=== PATIENT | male | born 1980 | race Caucasian/White ===

== ENCOUNTER 2018-11-11 16:51 | Inpatient (IN) | payer MEDICAID ==
[~2018-11-11] VITALS: Ht 160 cm; Wt 96.6 kg
[2018-11-11] VITALS (12 sets, daily range): BP systolic 92–143; BP diastolic 53–74
--- NOTE | 2018-11-11 16:54 | NUR ---
JACINTA 89 [facility]: OD ON OXYCONTIN USING SNORTING METHOD, 2 NARCAN GIVEN IN FIELD WITH SOME RESPONSE, TO ER BED 8,PT NOTED W ALTERED MENTAL STATUS, ABLE TO ANSWER HIS NAME WHEN ASKED, DIFFICULTY OF BREATHING. MD AT BEDSIDE, RT AT BEDSIDE.
--- NOTE | 2018-11-11 16:55 | NUR ---
PT A&O x1, LABORED SHALLOW BREATHING WITH RETRACTIONS NOTED, TACHYPNEIC, IN RESPIRATORY DISTRESS
--- NOTE | 2018-11-11 16:56 | NUR ---
INTUBATION DONE BY DR COLVIN
[2018-11-11] MEDS ORDERED: PROPOFOL 100 ML ONE (17:01)
[2018-11-11] MEDS ORDERED: LORAZEPAM INJ 2 MG/ML VIAL ONE (17:01)
[2018-11-11] MEDS: PROPOFOL 100 ML IV ONE ×2 (17:10→17:22)
--- NOTE | 2018-11-11 17:10 | NUR ---
PT ON MONITOR, NOTED W PINPOINT PUPILS, BILATERAL COARSE WET RONCHI AT BOTH LUNG PIRES. RT AT BEDSIDE
--- NOTE | 2018-11-11 17:27 | NUR ---
RT NOTE PT INTUBATED PER MD ORDER. 7.5 ETT 26 CM AT LIP. CUFF INFLATED. ETT SECURE. SETTINGS FOLLOW AC 16 550 100% +5. ALARMS SET PER PROTOCOL AND AUDIBLE. VENT PLUGGED IN TO RED OUTLET. AMBU BAG AT BED SIDE. BLOOD COLORED FROTHY SECRETIONS SUCTIONED FROM TRACHEA. Addendum: 11/11/18 at 1729 by BAUTISTA ALVARADO RT Amended: Links added.
[2018-11-11] MEDS ORDERED: IV NS 0.9% 1,000 ML BAG IV ONE (17:30)
[2018-11-11] MEDS ORDERED: ETOMIDATE 2 MG/ML VIAL IV ONE ×2 (17:30→18:56)
[2018-11-11] MEDS ORDERED: SUCCINYLCHOLINE CHLORIDE 20 MG/ML VIAL IV ONE ×2 (17:30→18:56)
[2018-11-11] MEDS ORDERED: NALOXONE HCL 0.4 MG/ML AMPUL IV ONE (17:30)
[2018-11-11] MEDS ORDERED: FUROSEMIDE 20 MG/2 ML VIAL IV ONE (17:30)
[2018-11-11 17:43] LABS: BASOPHILS # (AUTO) 0.1 /CMM (0.0-0.2); BASOPHILS % (AUTO) 0.4 % (0.0-2.0); EOSINOPHILS % (AUTO) 1.5 % (0.0-6.0); HEMATOCRIT 37 % (39-51); HEMOGLOBIN 10.6 g/dL (13.5-17.5); LYMPHOCYTES # (AUTO) 6.3 /CMM (0.8-4.8); MEAN CORPUSCULAR HGB CONC 28 g/dl (31.0-36.0); MEAN CORPUSCULAR VOLUME 64 fL (80-96); MONOCYTES # (AUTO) 0.6 /CMM (0.1-1.30); MONOCYTES % (AUTO) 3.4 % (2.0-12.0); NEUTROPHILS # (AUTO) 10.8 /CMM (1.8-8.9); NEUTROPHILS % (AUTO) 59.7 % (43.0-81.0); PLATELET COUNT (AUTO) 302 /CMM (150-450); RED BLOOD CELL COUNT(AUTO) 5.84 MIL/uL (4.5-6.0); WHITE BLOOD COUNT (AUTO) 18.1 K/uL (4.3-11.0)
[2018-11-11 17:44] LABS: ALANINE AMINOTRANSFERASE 88 U/L (12-78); ALBUMIN 3.4 g/dL (3.4-5.0); ALKALINE PHOSPHATASE 157 U/L (46-116); ASPARTATE AMINOTRANSFERASE 127 U/L (15-37); BILIRUBIN,DIRECT 0.1 mg/dL (0.0-0.2); BILIRUBIN,TOTAL 0.4 mg/dL (0.2-1.0); CALCIUM, SERUM 7.6 mg/dL (8.5-10.1); CARBON DIOXIDE 19 mmol/L (21-32); CHLORIDE 102 mmol/L (98-107); CREATININE 1.3 mg/dL (0.6-1.3); POTASSIUM 4.2 mmol/L (3.5-5.1); SODIUM SERUM 135 mmol/L (136-145); TOTAL PROTEIN, SERUM 7.5 g/dL (6.4-8.2); UREA NITROGEN, BLOOD 14 mg/dL (7-18)
[2018-11-11 17:45] LABS: GLUCOSE 356 mg/dL (74-106)
[2018-11-11] MEDS ORDERED: INSULIN REGULAR, HUMAN 100 UNIT/ML 10 ML VIAL IV ONE (18:00)
--- NOTE | 2018-11-11 18:04 | NUR ---
CALLED FOR ICU BED
--- NOTE | 2018-11-11 18:06 | NUR ---
GOT BED 257
[2018-11-11] MEDS ORDERED: INSULIN REGULAR, HUMAN 100 UNIT/ML 10 ML VIAL ONE (18:07)
--- NOTE | 2018-11-11 18:10 | NUR ---
4 UNITS OF HUMULIN R GIVEN ORDERED, BS CHECKED AT 141MG/DL MD MADE AWARE
[2018-11-11 18:11] LABS: ABG BASE EXCESS -7.6 mmol/L; ABG OXYGEN SATURATION 92.9 % (92.0-98.5); ABG PCO2 59.9 mmHg (35.0-45.0); ABG PH 7.171 (7.350-7.450); AaDO2 569.1 mmHg; COHb 0.8 % (0.5-1.5); MetHb 0.5 % (0.0-1.5); O2Hb 91.7 % (94.0-97.0); PEEP,BG 5 cm H2O; SITE, ABG Right Radial; VENT MODE, BG AC 16 550 100% +5; VT, ABG 550 mL
--- NOTE | 2018-11-11 18:34 | NUR ---
REPORT GIVEN TO CLAUDIO HERMOSILLO
[2018-11-11] MEDS ORDERED: ONDANSETRON HCL/PF 4 MG/2 ML VIAL IVP PRN (19:00)
[2018-11-11] MEDS ORDERED: ACETAMINOPHEN 325 MG TABLET PO PRN (19:00)
[2018-11-11] MEDS ORDERED: PIPERACILLIN /TAZOBACTAM 3.375 G in IV D5W 50 ML IV ONE (19:00)
[2018-11-11] MEDS ORDERED: MAGNESIUM HYDROXIDE 30 ML UDC PO PRN (19:00)
[2018-11-11] MEDS ORDERED: PROPOFOL 100 ML IV PRN (19:00)
[2018-11-11] MEDS ORDERED: MAG HYDROX/AL HYDROX/SIMETH 30 ML UDC PO PRN (19:00)
--- NOTE | 2018-11-11 19:02 | NUR ---
INFORMATION RESOURCES MANAGER: RECEIVED PT ON S/P ORAL INTUBATION SECONDARY WT ADMISSION DX OF ACUTE HYPOXIC RESPIRATORY FAILURE. VENT SETTINGS ORDERED WT O2 SAT 96% AND ABOVE. SEDATED ON DIPRIVAN DRIP AT 60MCG/KG/MIN AND WITHDRAWS TO PAIN STIMULI. IV SITES INTACT WT NO S/S OF INFILTRATION. BILAT. SOFT WRIST RESTRAINTS IN PLACE FOR EPISODES OF TRYING TO REMOVE TUBINGS. SR-ST ON CARDICA MONITOR. AFEBRILE. F/C INTACT DRAINING LARGE AMT. OF CLEAR YELLOW URINE. HOB AT 35 DEGREES. SAFETY PRECAUTION NOTED. WILL CONTINUE TO MONITOR.
[2018-11-11] MEDS ORDERED: DEXTROSE 50%-WATER 50 ML DISP.SYRIN IVP ONE (19:30)
[2018-11-11] MEDS: IV NS 0.9% 1,000 ML IV PRN (19:41)
[2018-11-11] MEDS: ENOXAPARIN SODIUM 40 MG/0.4 ML DISP.SYRIN SQ SCH (19:55)
[2018-11-11] MEDS: PROPOFOL 100 ML IV PRN ×3 (20:01→23:57)
[2018-11-11] MEDS: BLOOD SUGAR DIAGNOSTIC 1 EACH STRIP IN SCH (23:32)
[2018-11-12] VITALS (37 sets, daily range): BP systolic 95–130; BP diastolic 55–81
[2018-11-12] MEDS ORDERED: PIPERACILLIN /TAZOBACTAM 3.375 G in IV D5W 50 ML IV SCH ×2
[2018-11-12] MEDS: PIPERACILLIN /TAZOBACTAM 3.375 G in IV D5W 100 ML IV SCH ×4 (00:30→23:43)
[2018-11-12] MEDS: PROPOFOL 100 ML IV PRN ×14 (01:45→23:11)
[2018-11-12 04:35] LABS: BASOPHILS % (AUTO) 0.3 % (0.0-2.0); EOSINOPHILS % (AUTO) 0.3 % (0.0-6.0); HEMATOCRIT 35 % (39-51); HEMOGLOBIN 10.7 g/dL (13.5-17.5); LYMPHOCYTES # (AUTO) 1.2 /CMM (0.8-4.8); LYMPHOCYTES % (AUTO) 12.3 % (20.0-44.0); MEAN CORPUSCULAR HGB CONC 31 g/dl (31.0-36.0); MEAN CORPUSCULAR VOLUME 61 fL (80-96); MONOCYTES # (AUTO) 0.7 /CMM (0.1-1.30); MONOCYTES % (AUTO) 6.8 % (2.0-12.0); NEUTROPHILS # (AUTO) 7.8 /CMM (1.8-8.9); NEUTROPHILS % (AUTO) 80.3 % (43.0-81.0); PLATELET COUNT (AUTO) 195 /CMM (150-450); RED BLOOD CELL COUNT(AUTO) 5.65 MIL/uL (4.5-6.0); WHITE BLOOD COUNT (AUTO) 9.8 K/uL (4.3-11.0)
[2018-11-12 04:38] LABS: CALCIUM, SERUM 8.1 mg/dL (8.5-10.1); MAGNESIUM 1.9 mg/dL (1.8-2.4); PHOSPHORUS 4.2 mg/dL (2.5-4.9); POTASSIUM 3.4 mmol/L (3.5-5.1)
[2018-11-12 04:57] LABS: BAND % (MANUAL) 4 % (0.0-5.0); LYMPHOCYTES % (MANUAL) 13 % (16-48); MONOCYTES % (MANUAL) 4 % (0-11.0); NEUTROPHILS % (MANUAL) 79 (42-76)
[2018-11-12] MEDS: BLOOD SUGAR DIAGNOSTIC 1 EACH STRIP IN SCH ×4 (05:47→23:49)
--- NOTE | 2018-11-12 06:50 | NUR ---
HEALTH AND SAFETY ADVISOR: STILL SEDATED ON DIPRIVAN AT 100 MCG/KG/MIN. FI02 DECREASED TO 60% SINCE 0400 WT NO ACUTE DISTRESS. NO SIGNIFICANT KENJI DURING THE SHIFT. WILL ENDORSE TO DAY SHIFT FOR CONTINUITY OF CARE. SAFETY PRECAUTION NOTED AT ALL TIMES.
--- NOTE | 2018-11-12 07:10 | NUR ---
RN NOTES RECEIVED PT ON BED, INTUBATED, SEDATED, TOLERATING CURRENT VENT SETTING WELL, O2 SAT 98%,ON TELE SR HR IN 90'S , ON DIPRIVAN DRIP AT 100MCG/KG/MIN , R AND L AC IV SITE G 18 CLEAN ,DRY AND INTACT, ABDNO. SOFT WRIST RESTRAINTS IN PLACE FOR EPISODES OF TRYING TO REMOVE TUBINGS AND SAFETY PRECAUTIONS, F/C INTACT DRAINING LARGE AMT. OF CLEAR YELLOW URINE. HOB ELEVATED, ,SR UP x3, CALL LIGHT WITHIN EASY REACH, BED LOCKED AND IN LOWEST POSITION, CONTINUE TO MONITOR.
[2018-11-12] MEDS: PANTOPRAZOLE 40 MG VIAL IV SCH (08:08)
[2018-11-12] MEDS: IV NS 0.9% 1,000 ML IV PRN ×3 (08:33→23:26)
[2018-11-12 09:03] LABS: ABG BASE EXCESS -1.9 mmol/L; ABG OXYGEN SATURATION 94.3 % (92.0-98.5); ABG PCO2 42.3 mmHg (35.0-45.0); ABG PH 7.362 (7.350-7.450); ABG PO2 75.7 mmHg (75.0-100.0); AaDO2 160.9 mmHg; COHb 0.7 % (0.5-1.5); MetHb 0.5 % (0.0-1.5); O2Hb 93.2 % (94.0-97.0); SITE, ABG Right Radial
[2018-11-12] MEDS ORDERED: POTASSIUM CHLORIDE 20 MEQ TAB.PRT.SR PO ONE (10:30)
[2018-11-12] MEDS ORDERED: IV NS 0.9% 500 ML IV ONE (10:30)
--- NOTE | 2018-11-12 11:25 | NUR ---
RT PATIENT REC'D ORALLY INTUBATED ON [facility] VENT WITH ORDERED SETTINGS ALEXANDREA WELL. VENT ALARMS CHECKED + AUDIBLE. CUFF PRESSURE CHECKED STUDENT LIAISON OFFICER. B/S DIM CLEAR. PATIENT AIRWAY SUCTIONED AND PATENT. SMALL AMT OF PALE SEMI-THICK SECRETIONS. AMBU BAG AT [facility]. Addendum: 11/12/18 at 1128 by MARTINEZ WIGGINS RT Amended: Links added.
[2018-11-12] MEDS: POTASSIUM CL. PREMIX PERIPHER. 50 ML IV SCH ×4 (11:49→15:10)
--- NOTE | 2018-11-12 12:00 | NUR ---
RN NOTES VSS STABLE CONTINUE TO MONITOR .
[2018-11-12] MEDS: Z GUARD REMEDY 4 OZ OINT TP SCH ×2 (15:21→20:16)
[2018-11-12] MEDS: LORAZEPAM INJ 2 MG/ML VIAL IV PRN (16:19)
--- NOTE | 2018-11-12 16:19 | NUR ---
RN NOTES PT TRIES TO GET OUT OF THE BED, DR DIGGS NOTIFIED, ATIVAN 1MG IV GIVEN
[2018-11-12] MEDS ORDERED: LORAZEPAM INJ 2 MG/ML VIAL IVP PRN (18:00)
[2018-11-12] MEDS ORDERED: LORAZEPAM INJ 2 MG/ML VIAL IV PRN (18:00)
--- NOTE | 2018-11-12 18:00 | NUR ---
RN NOTES PT STILL INTUBATED, VSS STABLE, NO SIGNIFICANT CHANGES NOTED ON THIS SHIFT, WILL ENDOSE TO CERTIFICATION ENGINEER NURSE FOR CONTINUITY OF CARE .
--- NOTE | 2018-11-12 19:30 | NUR ---
BATTERY WRECKER OPERATOR: RECEIVED PT STILL INTUBATED WT VENT SETTINGS ORDERED. SEDATED ON DIPRIVAN AT 100MCG/KG/MIN, WITHDRAWS TO PAIN STIMULI. BILAT. SOFT WRIST RESTRAINTS IN PLACE FOR EPISODES OF TRYING TO REACH TUBINGS. SKIN AND CIRCULATION WNL. NO ACUTE DISTRESS OR EVIDENCE OF DISCOMFORT. VS WITHIN PT's BASELINE. CONTINUE ON NS AT 150ML/HR WT GOOD URINE OUTPUT AND NO S/S OF IV INFILTRATION. . HOB AT 35 DEGREES. SAFETY PRECAUTION NOTED. WILL CONTINUE TO MONITOR.
[2018-11-12] MEDS: ENOXAPARIN SODIUM 40 MG/0.4 ML DISP.SYRIN SQ SCH (20:04)
[2018-11-13] VITALS (24 sets, daily range): BP systolic 93–164; BP diastolic 46–92
[2018-11-13] MEDS: PROPOFOL 100 ML IV PRN ×5 (01:06→07:45)
[2018-11-13 04:38] LABS: BASOPHILS # (AUTO) 0.1 /CMM (0.0-0.2); BASOPHILS % (AUTO) 0.9 % (0.0-2.0); EOSINOPHILS % (AUTO) 7.9 % (0.0-6.0); HEMATOCRIT 29 % (39-51); HEMOGLOBIN 8.9 g/dL (13.5-17.5); LYMPHOCYTES # (AUTO) 1.7 /CMM (0.8-4.8); LYMPHOCYTES % (AUTO) 21.9 % (20.0-44.0); MEAN CORPUSCULAR HGB CONC 31 g/dl (31.0-36.0); MEAN CORPUSCULAR VOLUME 61 fL (80-96); MONOCYTES # (AUTO) 0.4 /CMM (0.1-1.30); MONOCYTES % (AUTO) 5.3 % (2.0-12.0); NEUTROPHILS # (AUTO) 5.1 /CMM (1.8-8.9); PLATELET COUNT (AUTO) 168 /CMM (150-450); RED BLOOD CELL COUNT(AUTO) 4.72 MIL/uL (4.5-6.0); WHITE BLOOD COUNT (AUTO) 7.9 K/uL (4.3-11.0)
[2018-11-13 04:58] LABS: CALCIUM, SERUM 8.3 mg/dL (8.5-10.1); CREATININE 0.7 mg/dL (0.6-1.3); MAGNESIUM 2.1 mg/dL (1.8-2.4); PHOSPHORUS 2.7 mg/dL (2.5-4.9); POTASSIUM 3.4 mmol/L (3.5-5.1)
[2018-11-13 05:20] LABS: LYMPHOCYTES % (MANUAL) 17 % (16-48); MONOCYTES % (MANUAL) 3 % (0-11.0); NEUTROPHILS % (MANUAL) 73 (42-76)
[2018-11-13 05:21] LABS: EOSINOPHILS % (MANUAL) 7 % (0-4)
[2018-11-13] MEDS: BLOOD SUGAR DIAGNOSTIC 1 EACH STRIP IN SCH ×2 (06:27→12:19)
[2018-11-13] MEDS: IV NS 0.9% 1,000 ML IV PRN ×3 (06:28→18:00)
--- NOTE | 2018-11-13 06:50 | NUR ---
STUDY LEAD: NO SIGNIFICANT KENJI DURING THE SHIFT. STILL ON DIPRIVAN AT 100MCG/KG/MIN. VS WITHIN PT's BASELINE. ALL NEEDS MET.
--- NOTE | 2018-11-13 07:10 | NUR ---
RN INITIAL NOTES RECEIVED PT INTUBATED, ON VENT. NO RESPIRATORY DISTRESS NOTED. NO SOB NOTED. PT SEDATED, ON DIPRIVAN AT 100MCG/KG/MIN. WILL TITRATE ACCORDINGLY. IV LINES IN PLACE. IVF INFUSING. FC IN PLACE. NO HEMATURIA NOTED. BLE ELEVATED. WILL MONITOR.
--- NOTE | 2018-11-13 07:40 | NUR ---
RT PT RECEIVED ORALLY INTUBATED WITH A 7.5 ETT SECURED AT 26CM AT THE LIP LINE, PT IS ON VENT WITH NOTED SETTINGS. PT IS CURRENTLY SEDATED AT THIS TIME. VENT ALARMS ARE SET AND AUDIBLE WITH BVM BY BEDSIDE. MIDDLE SCHOOL HUMANITIES TEACHER CUFF PRESSURE NOTED. VENT IS PLUGGED INTO RED OUTLET. SX'D SMALL THIN BLOOD TINGED SECRETIONS. NO RESPIRATORY DISTRESS NOTED AT THIS TIME, WILL CONTINUE TO MONITOR. Addendum: 11/13/18 at 1023 by MARYAN GARCIA RT Amended: Links added.
[2018-11-13] MEDS ORDERED: DC PROPOFOL WHEN EXTUBATED XX PRN ×2 (08:00→09:30)
[2018-11-13] MEDS: PIPERACILLIN /TAZOBACTAM 3.375 G in IV D5W 100 ML IV SCH ×3 (08:19→23:22)
[2018-11-13] MEDS: PANTOPRAZOLE 40 MG VIAL IV SCH (08:19)
[2018-11-13] MEDS: Z GUARD REMEDY 4 OZ OINT TP SCH ×2 (08:20→21:14)
[2018-11-13 09:10] LABS: ABG BASE EXCESS -5.8 mmol/L; ABG OXYGEN SATURATION 98.3 % (92.0-98.5); ABG PCO2 32.1 mmHg (35.0-45.0); ABG PO2 136.6 mmHg (75.0-100.0); AaDO2 111.7 mmHg; COHb 0.9 % (0.5-1.5); MetHb 0.4 % (0.0-1.5); PEEP,BG 5 cm H2O; SITE, ABG Right Brachial; VENT MODE, BG SIMV 4 / PS 12; VT, ABG 550 mL
--- NOTE | 2018-11-13 09:20 | NUR ---
RT PT EXTUBATED PER DR. PARRA ORDERS. PT IS AWAKE AND ALERT, TOLERATING WELL ON 3L NASAL CANNULA. NO RESPIRATORY DISTRESS NOTED AT THIS TIME. Addendum: 11/13/18 at 0926 by MARYAN GARCIA RT Amended: Links added.
--- NOTE | 2018-11-13 09:30 | NUR ---
RN NOTES 0800 PT STARTED ON SEDATION VACATION. PT FOR WEANING TRAIL TODAY. WILL CLOSELY MONITOR 0820 SEEN AND EXAMINED BY DR PARRA. PT AWAKE AND FOLLOW SIMPLE COMMANDS ON DIPRIVAN AT 85MCG/KG/MIN. PER , TITRATE DIPRIVAN TO 10MCG/KG/MIN WHILE HE IS HERE. WILL DO ABG IN 15MINS. VS WNL. WILL MONITOR 0920 ABG DONE. RESULT REPORTED TO DR PARRA. MD ORDERED EXTUBATION. PT EXTUBATED, TOLERATED WELL. PLACED ON 02 AT 3LPM VIA NC. HOB ELEVATED. NO SOB NOTED. WILL CLOSELY MONITOR.
[2018-11-13] MEDS: POTASSIUM CL. PREMIX PERIPHER. 50 ML IV SCH ×2 (09:47→10:50)
--- NOTE | 2018-11-13 18:00 | NUR ---
RN INITIAL NOTES RECEIVED PATIENT A/O X3, ABLE TO MAKE NEEDS KNOWN, ON NASAL CANNULA, NO RESPIRATORY DISTRESS NOTED. NO SOB NOTED. PT SEDATED, IV LINES IN PLACE AND INTACT. IVF CONNECTED BACK AND INFUSING WELL. BIRD CATHETER IN PLACE AND DRAINING WELL TO CLEAR YELLOW URINE. NO HEMATURIA NOTED. PATIENT ORIENTED TO FLOOR. CALL LIGHT PLACE WITHIN REACH, SAFETY MEASURES OBSERVED AND PUT IN PLACE, WILL MONITOR. Addendum: 11/13/18 at 2018 by HALLE MOON RN PATIENT NOT SEDATED
--- NOTE | 2018-11-13 18:25 | NUR ---
RN NOTES PT TRANSFERRED TO ROOM 104. PT AWAKE, A/OX4. NO SOB NOTED. ON 02 VIA NC. DENIES ANY PAIN. IV LINES IN PLACE. IVF INFUSING. PT CLEAN AND DRY. KEPT COMFORTABLE. REPORT GIVEN TO HALLE, RN AT BEDSIDE. TOOK OVER PT'S CARE.
--- NOTE | 2018-11-13 19:45 | NUR ---
RN NOTES PATIENT REMAINS IN NO ACUTE DISTRESS IN BED. PT DID NOT HAVE ANY SIGNIFICANT CHANGE IN CONDITION DURING SHIFT. ALL NEEDS MET, ALL ORDERS CARRIED OUT. WILL ENDORSE FOR CONTINUITY OF CARE.
--- NOTE | 2018-11-13 20:00 | NUR ---
RN INITIAL NOTES RECEIVED PATIENT'S REPORT FROM AM NURSE, PT IS A/O X3, ABLE TO MAKE NEEDS KNOWN,SPEECH IS SLOW AND DELAYED, ON RA, REFUSING NC.NO RESPIRATORY DISTRESS NOTED. NO SOB NOTED. IV LINES IN PLACE AND INTACT. IVF CONNECTED AND INFUSING WELL. BIRD CATHETER IN PLACE AND DRAINING WELL TO GRAVITY CLEAR YELLOW URINE. NO HEMATURIA NOTED. PATIENT ORIENTED TO FLOOR. CALL LIGHT PLACE WITHIN REACH, SAFETY MEASURES OBSERVED AND WITHIN REACH, WILL CONTINUE TO MONITOR.
[2018-11-13] MEDS: ENOXAPARIN SODIUM 40 MG/0.4 ML DISP.SYRIN SQ SCH (21:15)
[2018-11-13] MEDS: LORAZEPAM INJ 2 MG/ML VIAL IV PRN (21:16)
[2018-11-14] VITALS: BP 130/78
--- NOTE | 2018-11-14 00:25 | NUR ---
RN NOTES MD JEREMIAH COHN IS IN THE UNIT AND PATIENT ASKED THE BIRD CATHETER TO BE REMOVED. NEW ORDER FOR REMOVAL OF BIRD CATHETER IS IN PLACE.
[2018-11-14] MEDS: IV NS 0.9% 1,000 ML IV PRN ×2 (00:55→09:58)
[2018-11-14] MEDS: LORAZEPAM INJ 2 MG/ML VIAL IV PRN ×2 (03:28→09:03)
[2018-11-14 04:00] VITALS: BP 123/80
[2018-11-14 06:42] LABS: BASOPHILS % (AUTO) 0.8 % (0.0-2.0); EOSINOPHILS % (AUTO) 8.6 % (0.0-6.0); HEMATOCRIT 27 % (39-51); HEMOGLOBIN 8.4 g/dL (13.5-17.5); LYMPHOCYTES # (AUTO) 1.4 /CMM (0.8-4.8); LYMPHOCYTES % (AUTO) 24.8 % (20.0-44.0); MEAN CORPUSCULAR HGB CONC 31 g/dl (31.0-36.0); MEAN CORPUSCULAR VOLUME 61 fL (80-96); MONOCYTES # (AUTO) 0.4 /CMM (0.1-1.30); MONOCYTES % (AUTO) 6.8 % (2.0-12.0); NEUTROPHILS # (AUTO) 3.4 /CMM (1.8-8.9); PLATELET COUNT (AUTO) 176 /CMM (150-450); RED BLOOD CELL COUNT(AUTO) 4.49 MIL/uL (4.5-6.0); WHITE BLOOD COUNT (AUTO) 5.7 K/uL (4.3-11.0)
[2018-11-14 07:05] LABS: CREATININE 0.5 mg/dL (0.6-1.3); MAGNESIUM 1.8 mg/dL (1.8-2.4); PHOSPHORUS 2.1 mg/dL (2.5-4.9); POTASSIUM 3.6 mmol/L (3.5-5.1)
[2018-11-14 08:00] VITALS: BP 135/77
--- NOTE | 2018-11-14 08:00 | NUR ---
Initial assessment noticed redness and integumentary deviation noted to right hand (palmar lateral underneath 5th digit) open to air. BAY Pang performing woundcare today for patient on behalf of woundcare nurse. Addendum: 11/14/18 at 1323 by YOUSUF VILA RN Amended: Links added.
[2018-11-14 08:20] LABS: EOSINOPHILS % (MANUAL) 7 % (0-4); LYMPHOCYTES % (MANUAL) 24 % (16-48); MONOCYTES % (MANUAL) 7 % (0-11.0); NEUTROPHILS % (MANUAL) 62 (42-76)
[2018-11-14] MEDS: PANTOPRAZOLE 40 MG VIAL IV SCH (09:02)
[2018-11-14] MEDS: PIPERACILLIN /TAZOBACTAM 3.375 G in IV D5W 100 ML IV SCH (09:02)
[2018-11-14] MEDS: Z GUARD REMEDY 4 OZ OINT TP SCH (09:03)
--- NOTE | 2018-11-14 11:20 | NUR ---
Spoke with discharging physician and social service technician. Both notified me (primary RN) that they are working on finding patient place to be discharged to because patient will not be accepted at previous [facility] facility.
[2018-11-14] MEDS ORDERED: AMOX-430 PO (11:27)
--- NOTE | 2018-11-14 11:36 | NUR ---
Social service consult requested by JULIETTE Alonso for drug overdose. Pt. is a 37 year old male who was admitted to [facility] for respiratory distress for a drug overdose. NYLA met with the pt. bedside. Pt. is alert and oriented x 3. Pt. has slow speech which makes it difficult to understand at times. Pt. informed NYLA he was at [facility] but is not able to go back until he goes to drug rehabilitation. NYLA contacted [facility] with pt. present bedside. Bernardo informed NYLA and the pt. that he will need to go to a treatment facility prior to coming back to the [facility]. [facility] stated he has been dealing with the pt. for the past six months. NYLA contacted pt's brother Toby with pt. bedside. Toby informed NYLA and Edilberto to contact [facility] and to speak with Joe Reyes. NYLA contacted Joe Reyes at [facility] who did an intake assessment with the pt. via phone. Joe informed NYLA and pt. that a counselor will be contacting the pt. shortly. NYLA contacted pt's brother Toby and informed him that pt. did speak with Joe and is awaiting a counselor to call him back. NYLA informed Toby that pt. is medically cleared for discharge. Toby requested if pt. can be discharged this evening since he is busy at the moment and will not be able to pick and shovel worker the pt. Toby also informed NYLA, he is trying to get pt. into different treatment programs as well if possible. NYLA gave him pt's room number and unit number to call back. NYLA updated pt's BAY Block and Dr. Saenz regarding pt's pending discharge plan.
--- NOTE | 2018-11-14 11:51 | NUR ---
WOUND CARE CONSULT. SEEN PATIENT AT BEDSIDE, SEE WOUND PLATE GAUGER IN PCS FOR TODAY,PATIENT NEED MIN ASSISTANCE WITH BED MOBILITY . WILL SEE PATIENT PRN Addendum: 11/14/18 at 1156 by ADELAIDA MOREJON RN Amended: Links added.
[2018-11-14 12:00] VITALS: BP 131/78
[2018-11-14] MEDS ORDERED: NEOMY SULF/BACITRAC ZN/POLY 15 GM TUBE TP SCH (12:00)
[2018-11-14 12:40] VITALS: BP 135/77
--- NOTE | 2018-11-14 13:35 | NUR ---
Spoke with Yuriy from pharmacy regarding the need for prescribed ointment. Yuriy stated,"We will bring one."
--- NOTE | 2018-11-14 13:55 | NUR ---
NYLA contacted pt's brother Toby to inquire if he was able to find a treatment program or placement for the pt. Toby informed NYLA he is working with Bernardo to get pt. back to his sober living that he came from. NYLA informed Toby she will follow up with him around 4Pm to inquire where pt. will be going. Addendum: 11/14/18 at 1358 by CHIVO REDMOND NYLA updated case finisher Antoinette with the aforementioned information and gave her the contact numbers for Toby and [facility].
--- NOTE | 2018-11-14 14:00 | NUR ---
Pt refused neosporin ointment
--- NOTE | 2018-11-14 16:17 | NUR ---
Notified by plant maintenance worker that patient was accepted back into old [facility] facility under new stipulations. Pt agreed to abide by additional rules placed upon him. [facility] service to be set up and [facility] [phone] to be notified when patient is on the way back to facility.
--- NOTE | 2018-11-14 16:18 | NUR ---
NYLA received a call from pt's brother Toby informing NYLA that [facility], his sober living will accept him back and to arrange transportation with him. NYLA contacted [facility] to confirm if he is accepting pt. [facility] informed SW he is accepting pt. but has some terms he wants the pt. to know about prior to coming. Bernardo spoke to the pt. regarding the terms he is accepting him back to the sober living. Pt. agreed. Pt. to be transported to [address] [place] [address]. [place] [id number] via taxi. NYLA updated pt's BAY Block and community case manager Antoinette regarding pt's discharge plan. NYLA contacted nursing pit and auxiliaries supervisor Lydia and requested for a taxi voucher to transport pt. to his sober living. Nursing pit and auxiliaries supervisor requested to send RN to get the taxi voucher. [facility] Block was notified. NYLA gave BAY Chang's contact and informed him to call him when pt. is on his way to the sober living. No other social service needs are requested at this time. NYLA is available, if needed.
--- NOTE | 2018-11-14 16:25 | NUR ---
Removed both Peripheral iv's. Catheter tips intact. Gauze and tape applied. Pt tolerated well. Pt is ambulatory with steady gait.
[2018-11-14] MEDS ORDERED: AMOX/CLAVULANATE 875 MG TABLET PO SCH (21:00)
== END 2018-11-14 16:55 | disposition home or self-care (01) | DRG 812 ==
LOC: ER 16:52 → ICU 18:53 → TELE1 11-13 18:12 → MEDSG1 11-14 16:10
PROVIDERS: ADMIT Nurse Practitioner Acute Care; ATTEND Internal Medicine
PROC: 0BH17EZ Insertion of Endotracheal Airway into Trachea, Via Natural or Artificial Opening (ICD-10-PCS; principal; 2018-11-11)
PROC: 5A1945Z Respiratory Ventilation, 24-96 Consecutive Hours (ICD-10-PCS; principal; 2018-11-11)
DX: T40.2X1A Poisoning by other opioids, accidental (unintentional), initial encounter (principal); J69.0 Pneumonitis due to inhalation of food and vomit; G92 Toxic encephalopathy; J96.01 Acute respiratory failure with hypoxia; J96.02 Acute respiratory failure with hypercapnia; E87.1 Hypo-osmolality and hyponatremia; F17.210 Nicotine dependence, cigarettes, uncomplicated; D50.9 Iron deficiency anemia, unspecified; Y92.89 Other specified places as the place of occurrence of the external cause; Z90.49 Acquired absence of other specified parts of digestive tract; D72.829 Elevated white blood cell count, unspecified; E86.1 Hypovolemia
CPT/HCPCS: 31720; 36415; 36600; 71045-TC; 80048-TC; 80076-TC; 80305; 82803-TC; 82962-TC; 83605-TC; 83735-TC; 84100-TC; 84484-TC; 85025-TC; 85730-TC; 87040-TC; 87081-TC; 94002-TC; 94003-TC; 94799-TC; 99082-TC; C9113; G0378; J0330; J1650; J1815; J1940; J2060; J2310; J2543; J3480; J3490; J7030; J7040; J7060

== ENCOUNTER 2021-05-19 11:04 | Inpatient (IN) | payer MEDICAID, OTHER ==
[~2021-05-19] VITALS: Ht 177.8 cm; Wt 95.7 kg
[~2021-05-19 11:04] MED LIST: AMOX-430 PO
--- NOTE | 2021-05-19 11:20 | NUR ---
[facility] HOME, TOOK 6 SEROQUEL 300MG MISTAKING IT FOR MOTRIN. VERBALLY RESPONSIVE, LETHARGIC REFINING MACHINE OPERATOR. BG 212. PATIENT SOMNOLENT BUT RESPONSIVE TO NAME. PATIENT PLACED ON THE TELECOM FIELD TECHNICIAN. HR ELEVATED. IV LINE PRESENT ON LFA G18.
--- NOTE | 2021-05-19 11:28 | NUR ---
CALLED POISON CONTROL: ELIA [phone] PLACE ON POOL NURSE & OBSERVATION FOR 6 HOURS. IF EKG QTC >500 1G MAG. LOOK FOR POSSIBLE ETHYLENE OXIDE PANELBOARD OPERATOR DEPRESSION, URINARY RET, SEIZURE PRECAUTION. WANT K +4 MAG +2 CALCIUM +9 KEEP IV HYDRATION. IF SEIUZURE TREAT WITH BENZO'S.
[2021-05-19] MEDS ORDERED: IV NS 0.9% 1,000 ML BAG IV ONE (11:30)
--- NOTE | 2021-05-19 11:36 | NUR ---
BLOOD DRAWN AND SENT TO LAB. PATIENT GIVEN A URINAL FOR A URINE SAMPLE.
[2021-05-19] MEDS ORDERED: Magnesium 1GM/D5W 100ML PREMIX 200 ML IV ONE (11:37)
[2021-05-19] MEDS: Magnesium 1GM/D5W 100ML PREMIX 100 ML IV SCH ×2 (11:40→12:45)
[2021-05-19 11:41] LABS: BASOPHILS % (AUTO) 0.6 % (0.0-2.0); EOSINOPHILS % (AUTO) 2.8 % (0.0-6.0); HEMATOCRIT 38 % (39-51); HEMOGLOBIN 12.9 g/dL (13.5-17.5); LYMPHOCYTES # (AUTO) 1.9 K/uL (0.8-4.8); LYMPHOCYTES % (AUTO) 44.3 % (20.0-44.0); MEAN CORPUSCULAR HGB CONC 34 g/dl (31.0-36.0); MEAN CORPUSCULAR VOLUME 80 fL (80-96); MONOCYTES # (AUTO) 0.4 K/uL (0.1-1.30); MONOCYTES % (AUTO) 9.1 % (2.0-12.0); NEUTROPHILS # (AUTO) 1.8 K/uL (1.8-8.9); NEUTROPHILS % (AUTO) 43.2 % (43.0-81.0); PLATELET COUNT (AUTO) 186 K/uL (150-450); RED BLOOD CELL COUNT(AUTO) 4.82 MIL/uL (4.5-6.0); WHITE BLOOD COUNT (AUTO) 4.2 K/uL (4.3-11.0)
--- NOTE | 2021-05-19 11:46 | NUR ---
COVID SWAB SENT TO LAB.
[2021-05-19 11:53] LABS: CALCIUM, SERUM 8.6 mg/dL (8.5-10.1); CARBON DIOXIDE 28 mmol/L (21-32); CHLORIDE 102 mmol/L (98-107); CREATININE 0.9 mg/dL (0.6-1.3); GLUCOSE 217 mg/dL (74-106); SODIUM SERUM 137 mmol/L (136-145); UREA NITROGEN, BLOOD 11 mg/dL (7-18)
[2021-05-19 12:00] LABS: ALANINE AMINOTRANSFERASE 170 U/L (12-78); ALBUMIN 3.3 g/dL (3.4-5.0); ALKALINE PHOSPHATASE 91 U/L (46-116); ASPARTATE AMINOTRANSFERASE 117 U/L (15-37); BILIRUBIN,DIRECT 0.2 mg/dL (0.0-0.2); BILIRUBIN,TOTAL 0.4 mg/dL (0.2-1.0); TOTAL PROTEIN, SERUM 7.3 g/dL (6.4-8.2)
--- NOTE | 2021-05-19 12:01 | NUR ---
PATIENT STABLE FOR TRANSFER TO UNIT REPORT GIVEN TO NURSE RUSH ALL QUESTIONS ANSWERED.
[2021-05-19] MEDS ORDERED: POTASSIUM CL. PREMIX PERIPHER. 100 ML ONE (12:25)
[2021-05-19] MEDS ORDERED: POTASSIUM CHLORIDE 20 MEQ TAB.PRT.SR PO ONE ×2 (12:25→12:30)
[2021-05-19] MEDS: POTASSIUM CL. PREMIX PERIPHER. 50 ML IV SCH ×2 (12:35→13:40)
--- NOTE | 2021-05-19 12:45 | NUR ---
VERBAL AUTHORIZATION FOR ADMISSION BY [facility] INGRAM
--- NOTE | 2021-05-19 12:50 | NUR ---
INFORMED DR. ENRIQUEZ, PO MEDICATION NOT GIVEN AT THIS TIME DUE TO PATIENT BEING AT RISK FOR ASPIRATION. PATIENT IS STILL DROWSY. MEDICATION HELD AT THIS TIME. WILL GIVE ONCE PATIENT IS FULLY AWAKE.
--- NOTE | 2021-05-19 12:55 | NUR ---
BIRD CATHETER INSERTED FR 16 VIA STERILE TECHNIQUE, URINE SAMPLE OBTAINED AND SENT TO LAB. BIRD CATH ORDERED BY DR. ENRIQUEZ. PATIENT AGREED.
[2021-05-19] MEDS ORDERED: MAGNESIUM HYDROXIDE 30 ML UDC PO PRN (13:00)
[2021-05-19] MEDS ORDERED: ACETAMINOPHEN 325 MG TABLET PO PRN (13:00)
[2021-05-19] MEDS ORDERED: ONDANSETRON HCL/PF 4 MG/2 ML VIAL IVP PRN (13:00)
[2021-05-19] MEDS ORDERED: MAG HYDROX/AL HYDROX/SIMETH 30 ML UDC PO PRN (13:00)
[2021-05-19] MEDS ORDERED: Z GUARD REMEDY 2 OZ OINT TP PRN (13:00)
--- NOTE | 2021-05-19 13:00 | NUR ---
RIKI YIN AT BEDSIDE FOR EVAL.
--- NOTE | 2021-05-19 13:05 | NUR ---
PER RIKI YIN, IF PATIENT UNABLE TO TOLERATE PO AT THIS TIME, ITS OK TO HOLD THE MEDICATION. PATIENT IS RECEIVING 2 BAGS OF POTASSIUM CHLORIDE 10MEQ.
--- NOTE | 2021-05-19 13:12 | NUR ---
REPORT GIVEN TO SOON PLATE SLITTER AND INSPECTOR NURSE.
[2021-05-19 13:38] LABS: MAGNESIUM 2.1 mg/dL (1.8-2.4); PHOSPHORUS 3.4 mg/dL (2.5-4.9)
[2021-05-19 13:50] VITALS: BP 109/56
--- NOTE | 2021-05-19 13:50 | NUR ---
RN NOTES RECEIVED PT FROM ER. LETHARGIC BUT ANSWERS TO QUESTIONS WHEN ASKED. ON ROOM AIR SATURATING @97% NO SOB OR ANY S/S OF RESPIRATORY DISTRESS. NO PAIN REPORTED AT THIS TIME. SKIN IS INTACT. BELONGING LIST SIGNED. SAFETY MEASURES IN PLACE. PLACED IN BED, LOCKED AND IN LOWEST POSITION WITH SIDE RAILS UP X3. CALL LIGHT WITHIN REACH. WILL CONTINUE TO MONITOR.
--- NOTE | 2021-05-19 13:51 | NUR ---
PATIENT TRANSFERRED TO ROOM 116-1 VIA ACLS PROTOCOL. IN NO DISTRESS. PATIENT WOKE UP TO TRANSFER HIMSELF FROM [facility] TO BED, AND WENT BACK TO SLEEP. ENDORSED TO RELIEF RN.
[2021-05-19 14:14] LABS: ACETAMINOPHEN 0 ug/ml (10-30); ALCOHOL, BLOOD < 3 mg/dL (0-0)
--- NOTE | 2021-05-19 14:31 | NUR ---
SS Consult received for OD. SS to follow up at a later time.
[2021-05-19 14:35] LABS: ABG BASE EXCESS 2.9 mmol/L; ABG OXYGEN SATURATION 96.8 % (92.0-98.5); ABG PCO2 46.3 mmHg (35.0-45.0); ABG PH 7.403 (7.350-7.450); ABG PO2 88.6 mmHg (75.0-100.0); AaDO2 5.7 mmHg; COHb 0.4 % (0.5-1.5); MetHb 0.3 % (0.0-1.5); O2Hb 96.1 % (94.0-97.0); SITE, ABG Left Radial; VENT MODE, BG ROOM AIR
[2021-05-19] MEDS: IV NS 0.9% 1,000 ML IV PRN (14:50)
[2021-05-19 16:00] VITALS: BP 104/57
--- NOTE | 2021-05-19 18:43 | NUR ---
RN CLOSING NOTES NO SIGNIFICANT CHANGES THROUGHOUT THE SHIFT. NO SOB OR ANY S/S OF RESPIRATORY DISTRESS. KEPT CLEAN AND COMFORTABLE. SAFETY MEASURES IN PLACE. ENDORSED TO NIGHT RN FOR KENJI.
--- NOTE | 2021-05-19 19:30 | NUR ---
RN NOTE RECEIVED PT IN BED, LETHARGIC, EASILY AROUSABLE BY VERBAL AND TOUCH TACTILE. NO DISTRESS NOTED. 99% ON ROOM AIR.PT ON NPO. ON TELE MONITORING SHOWS SINUS RHYTHM WITH HR OF 90. PT WITH BIRD CATH, IN PLACE, WITH CLEAR [place] URINE OUTPUT. IV ON RFA PATENT AND INTACT, NS RUNNING AT 90 ML/HR. ALL SAFETY MEASURES IN PLACE. CALL LIGHT WITHIN REACH.BED LOCKED IN LOWEST POSITION. SIDE RAILS UP, BED ALARM ON. WILL CONTINUE TO MONITOR.
[2021-05-19 20:00] VITALS: BP 120/79
[2021-05-20] VITALS: BP 105/69
--- NOTE | 2021-05-20 01:02 | NUR ---
RN NOTE PT FULLY AWAKE NOW, ALERT ORIENTED X 4, ABLE TO COMMUNICATE APPROPRIATELY. REQUESTED WATER. CALLED CARDIOLOGY ASSOCIATE SILK SCREEN PRINTER HELPER MAHOGANY, ORDERED TO CHANGE DIET TO REGULAR. ORDER NOTED AND CARRIED OUT.
--- NOTE | 2021-05-20 02:20 | NUR ---
RN NOTE PT BIRD REMOVED PT'S REQUEST. CHARGE NURSE MADE AWARE. WILL NOTIFY MD. WILL CONTINUE TO MONITOR.
[2021-05-20] MEDS: IV NS 0.9% 1,000 ML IV PRN (03:39)
[2021-05-20 04:00] VITALS: BP 102/68
[2021-05-20 06:26] LABS: BASOPHILS % (AUTO) 0.8 % (0.0-2.0); EOSINOPHILS % (AUTO) 3.3 % (0.0-6.0); HEMATOCRIT 40 % (39-51); HEMOGLOBIN 13.1 g/dL (13.5-17.5); LYMPHOCYTES # (AUTO) 1.5 K/uL (0.8-4.8); LYMPHOCYTES % (AUTO) 34.1 % (20.0-44.0); MEAN CORPUSCULAR HGB CONC 33 g/dl (31.0-36.0); MEAN CORPUSCULAR VOLUME 82 fL (80-96); MONOCYTES # (AUTO) 0.5 K/uL (0.1-1.30); MONOCYTES % (AUTO) 11.4 % (2.0-12.0); NEUTROPHILS # (AUTO) 2.3 K/uL (1.8-8.9); NEUTROPHILS % (AUTO) 50.4 % (43.0-81.0); PLATELET COUNT (AUTO) 174 K/uL (150-450); RED BLOOD CELL COUNT(AUTO) 4.84 MIL/uL (4.5-6.0); WHITE BLOOD COUNT (AUTO) 4.5 K/uL (4.3-11.0)
[2021-05-20 06:52] LABS: ALBUMIN 2.9 g/dL (3.4-5.0); BILIRUBIN,TOTAL 0.6 mg/dL (0.2-1.0); CALCIUM, SERUM 8.4 mg/dL (8.5-10.1); CREATININE 0.8 mg/dL (0.6-1.3); MAGNESIUM 2.2 mg/dL (1.8-2.4); PHOSPHORUS 3.5 mg/dL (2.5-4.9); POTASSIUM 4.2 mmol/L (3.5-5.1); TOTAL PROTEIN, SERUM 6.9 g/dL (6.4-8.2)
--- NOTE | 2021-05-20 06:57 | NUR ---
RN NOTE PT SLEEPING, AROUSES EASILY. CONTINUE ON IVF OF NS AT 90ML/HR. NO SIGNS OF INFILTRATION. CONTINUE ON TELE MONITORING, SHOWS SR WITH HR OF 62. PT TOLERATES ROOM AIR. NO DISTRESS NOTED. DENIES ANY PAIN. ALL SAFETY MEASURE IN PLACE. WILL ENDORSE TO NEXT SHIFT NURSE FOR KENJI.
[2021-05-20] MEDS ORDERED: PANTOPRAZOLE 40 MG TABLET.DR PO SCH (07:30)
--- NOTE | 2021-05-20 07:30 | NUR ---
RN OPENING NOTES Patient received in bed in stable condition. On room air with 02 sat of 98%. No c/o pain or discomfort. HOB kept elevated. Patient getting ready for breakfast. Will continue to monitor. Call light with in reach.
[2021-05-20 08:00] VITALS: BP 124/78
--- NOTE | 2021-05-20 09:57 | NUR ---
Patient requested to be discharged and informed DAIRY BAR MANAGER Syl. Per DAIRY BAR MANAGER if patient is not suicidal, patient can sign AMA. Patient assessed, no suicidal ideation. Patient stated he doesn't need psych assessment and will not wait as he is not suicidal and the dosing of seroquel was accidental.Patient stated he is not suicidal.No s/sx noted. Patient signed AMA and left with a friend. All iv's discontinued. Belonging list completed.
--- NOTE | 2021-05-20 12:46 | NUR ---
Geometrician note: youth services librarian consult requested for overdose. Patient is a 40-year-old, male. SW was unable to interview patient as the patient had been discharged and left AMA. Per EMR, patient denied suicidal ideation and was advised to seek psychiatric services. PLAN: No further SS intervention at this time, however, SW will remain available as needed.
== END 2021-05-20 09:26 | disposition left against medical advice (07) | DRG 812 ==
LOC: ER 11:08 → TELE1 12:51 → TELE-TD 15:21 → MEDSG1 05-20 08:26
PROVIDERS: ADMIT Nurse Practitioner Acute Care; ATTEND Nurse Practitioner Acute Care
DX: T43.591A Poisoning by other antipsychotics and neuroleptics, accidental (unintentional), initial encounter (principal); G92 Toxic encephalopathy; I45.81 Long QT syndrome; F17.210 Nicotine dependence, cigarettes, uncomplicated; E87.6 Hypokalemia; D50.9 Iron deficiency anemia, unspecified; J45.909 Unspecified asthma, uncomplicated; Z20.822 Contact with and (suspected) exposure to COVID-19; R74.01 Elevation of levels of liver transaminase levels
CPT/HCPCS: 36415; 36600; 71045-TC; 80048-TC; 80053-TC; 80076-TC; 82803-TC; 83735-TC; 84100-TC; 85025-TC; 87081-TC; G0378; G0480; J3475; J3480; J7030